=== PATIENT | female | born 1985 | race Caucasian/White ===

== ENCOUNTER 2017-06-14 18:04 | Emergency (ER) | payer MEDICAID, OTHER ==
[~2017-06-14] VITALS: Ht 152.4 cm; Wt 95.3 kg
[2017-06-14 18:11] VITALS: BP_SYST 153
[2017-06-14 19:03] VITALS: BP_SYST 146
== END 2017-06-14 19:00 | disposition home or self-care (01) ==
LOC: SED 18:04
DX: K03.81 Cracked tooth (principal); K04.7 Periapical abscess without sinus; J45.909 Unspecified asthma, uncomplicated; Z88.0 Allergy status to penicillin; Z88.1 Allergy status to other antibiotic agents
CPT/HCPCS: 99283